=== PATIENT | male | born 1975 | race Caucasian/White ===

== ENCOUNTER 2016-08-20 05:20 | Emergency (ER) | payer OTHER ==
[~2016-08-20] VITALS: Ht 172.7 cm; Wt 97.5 kg
[~2016-08-20 05:20] MED LIST: BACTROBAN CREAM15 GM T; CLARITIN10 MG PO; CYCLOBENZAPRINE10 MG PO; EXFORGE HCT 5 M1 TAB PO; Fioricet 325 MG1 TAB PO; HYDROCODONE BIT1 T11 PO; KEFLEX500 MG PO; LEVOFLOXACIN500 MG PO; NOVOLIN R100 U/ML SC; PREDNISONE50 MG PO; SYNTHROID0.025 MG PO; VICODIN ES 7501 TAB PO
[2016-08-20] MEDS ORDERED: AMLODIPINE BESY PO (05:27)
[2016-08-20 06:17] LABS: BASO # 0.1 10*3/uL (0.0-0.1); BASO % 0.9 % (0.0-1.0); EOS # 0.3 10*3/uL (0.0-0.4); HEMATOCRIT 43.9 % (42.0-52.0); HEMOGLOBIN 15.4 g/dl (14.0-18.0); LYMPH # 1.4 10*3/uL (1.3-4.4); LYMPH % 14.2 % (27.0-41.0); MEAN CELL VOLUME 83.6 fl (80.0-94.0); MEAN CORPUSCULAR HGB 29.3 pg (27.0-31.0); MEAN CORPUSCULAR HGB CONC 35.1 g/dl (33.0-37.0); MEAN PLATELET VOLUME 9.7 fl (9.6-12.3); NEUT # 7.1 10*3/uL (2.3-7.9); NEUT % 71.5 % (47.0-73.0); PLATELET COUNT AUTOMATED 393 10*3/uL (130-400); RED BLOOD COUNT 5.25 10*6/uL (4.50-5.90); RED CELL DISTRI WIDTH 13.2 % (0-14.5); WHITE BLOOD COUNT 9.9 10*3/uL (4.8-10.8)
[2016-08-20 06:31] LABS: ALBUMIN 3.5 gm/dl (3.1-4.5); ALKALINE PHOSPHATASE 114 U/L (45-117); BILIRUBIN, TOTAL 0.3 mg/dl (0.2-1.0); BUN 8 mg/dl (7-24); CARBON DIOXIDE 32 mmol/L (21-32); CHLORIDE 101 mmol/L (98-107); EST GLOM FILT AFRICAN AMERICAN > 60 ml/min; GLUCOSE 262 mg/dL (65-99); POTASSIUM 4.5 mmol/L (3.5-5.1); SGOT/AST 18 IU/L (3-35); SGPT/ALT 26 U/L (12-78); SODIUM 139 mmol/L (136-145); TOTAL PROTEIN 7.4 gm/dL (6.4-8.2)
[2016-08-20 06:33] LABS: TROPONIN I < 0.015 ng/ml (<0.045)
[2016-08-20] MEDS ORDERED: ROBITUSSIN AC 110 ML PO (06:38)
[2016-08-20] MEDS ORDERED: ZOFRAN ODT4 MG SL (06:38)
[2016-08-20] MEDS ORDERED: TAMIFLU 75MG CA75 MG PO (06:38)
[2016-08-20] MEDS ORDERED: ZITHROMAX250 MG PO (06:39)
[2016-08-20 06:51] LABS: BILIRUBIN NEGATIVE (NEGATIVE); BLOOD NEGATIVE (NEGATIVE); CLARITY CLEAR (CLEAR); COLOR YELLOW (YELLOW); GLUCOSE 3+ (NEGATIVE); KETONE NEGATIVE (NEGATIVE); NITRITE NEGATIVE (NEGATIVE); PH 7.5 (5.0-9.0); PROTEIN NEGATIVE (NEGATIVE); UROBILINOGEN 0.2 E.U./dl (0.2-1.0)
[2016-08-20 06:53] LABS: LEUKO ESTERASE NEGATIVE (NEGATIVE)
[2016-08-20 07:03] LABS: BACTERIA TRACE; RBC 0-2 rbc/hpf (0-2); URINE REFLEX COMMENT NO (NO); WBC 0-2 wbc/hpf (0-5)
== END 2016-08-20 07:34 | disposition home or self-care (01) ==
LOC: ED 05:20
PROVIDERS: Emergency Medicine Emergency Medical Services
DX: J40 Bronchitis, not specified as acute or chronic (principal); J11.1 Influenza due to unidentified influenza virus with other respiratory manifestations; E11.8 Type 2 diabetes mellitus with unspecified complications; Z90.89 Acquired absence of other organs; Z79.899 Other long term (current) drug therapy

== ENCOUNTER → 2020-04-06 | Outpatient (CLI) | payer OTHER ==
[~2020-04-06] MED LIST changes: +AMLODIPINE BESY PO; +ROBITUSSIN AC 110 ML PO; +TAMIFLU 75MG CA75 MG PO; +ZITHROMAX250 MG PO; +ZOFRAN ODT4 MG SL
== END | disposition home or self-care (01) ==
LOC: COVID19 08:20
PROVIDERS: ATTEND Internal Medicine
DX: Z20.828 Contact with and (suspected) exposure to other viral communicable diseases (principal)

== ENCOUNTER → 2020-04-10 | Outpatient (CLI) | payer OTHER | END | disposition home or self-care (01) | LOC: COVID19 09:41 | PROVIDERS: ATTEND Family Medicine | DX: Z20.828 Contact with and (suspected) exposure to other viral communicable diseases (principal) ==

== ENCOUNTER 2020-11-15 05:07 | Emergency (ER) | payer OTHER ==
[~2020-11-15] VITALS: Ht 172.7 cm; Wt 95.3 kg
[2020-11-15 05:50] LABS: ALBUMIN 3.6 gm/dl (3.1-4.5); ALKALINE PHOSPHATASE 101 U/L (45-117); BUN 5 mg/dl (7-24); CHLORIDE 104 mmol/L (98-107); CREATININE 0.67 mg/dL (0.70-1.30); ETHYL ALCOHOL < 3.0 mg/dl (<3); POTASSIUM 3.8 mmol/L (3.5-5.1); SGOT/AST 16 IU/L (3-35); SGPT/ALT 28 U/L (12-78); SODIUM 138 mmol/L (136-145); TOTAL PROTEIN 7.2 gm/dL (6.4-8.2); TROPONIN I < 0.015 ng/ml (<0.045)
[2020-11-15 05:53] LABS: BASO # 0.1 10*3/uL (0.0-0.1); BASO % 1.6 % (0.0-1.0); EOS # 0.5 10*3/uL (0.0-0.4); EOS % 7.8 % (1.0-4.0); HEMATOCRIT 43.9 % (42.0-52.0); LYMPH # 2.3 10*3/uL (1.3-4.4); LYMPH % 35.6 % (27.0-41.0); MEAN CELL VOLUME 83.3 fl (80.0-94.0); MEAN CORPUSCULAR HGB 28.7 pg (27.0-31.0); MEAN CORPUSCULAR HGB CONC 34.4 g/dl (33.0-37.0); MEAN PLATELET VOLUME 9.3 fl (9.6-12.3); MONO # 0.8 10*3/uL (0.1-1.0); MONO % 11.7 % (3.0-9.0); NEUT # 2.8 10*3/uL (2.3-7.9); NEUT % 42.8 % (47.0-73.0); PLATELET COUNT AUTOMATED 385 10*3/uL (130-400); RED BLOOD COUNT 5.27 10*6/uL (4.50-5.90); RED CELL DISTRI WIDTH 12.9 % (0-14.5); WHITE BLOOD COUNT 6.4 10*3/uL (4.8-10.8)
[2020-11-15] MEDS ORDERED: PREDNISONE20 M1 PO (06:01)
== END 2020-11-15 06:15 | disposition home or self-care (01) ==
LOC: ED 05:07
PROVIDERS: Internal Medicine
DX: R07.89 Other chest pain (principal); Z90.89 Acquired absence of other organs; Z79.899 Other long term (current) drug therapy

== ENCOUNTER → 2021-05-06 | Outpatient (CLI) | payer OTHER ==
[~2021-05-06] MED LIST changes: +PREDNISONE20 M1 PO
== END | disposition home or self-care (01) ==
LOC: COVID19 15:10
PROVIDERS: ATTEND Student in an Organized Health Care Education/Training Program
DX: Z20.822 Contact with and (suspected) exposure to COVID-19 (principal)

== ENCOUNTER → 2021-05-13 | Outpatient (CLI) | payer OTHER | END | disposition home or self-care (01) | LOC: MRI 09:58 | PROVIDERS: ATTEND Podiatrist | DX: M86.8X7 Other osteomyelitis, ankle and foot (principal) ==

== ENCOUNTER 2021-08-05 06:01 | Emergency (ER) | payer OTHER ==
[~2021-08-05] VITALS: Ht 175.2 cm; Wt 73.5 kg
[2021-08-05] MEDS ORDERED: LEVOFLOXACIN500 MG PO ×2 (06:27)
== END 2021-08-05 06:56 | disposition home or self-care (01) ==
LOC: ED 06:01
DX: J40 Bronchitis, not specified as acute or chronic (principal); Z79.899 Other long term (current) drug therapy

== ENCOUNTER 2021-08-08 20:49 | Emergency (ER) | payer OTHER ==
[~2021-08-08] VITALS: Ht 172.7 cm; Wt 95.3 kg
[2021-08-08] MEDS ORDERED: SYNTHROID137 MCG PO (20:57)
[2021-08-08] MEDS ORDERED: LIPITOR40 MG PO (20:57)
[2021-08-08] MEDS ORDERED: CYMBALTA60 MG PO (20:58)
[2021-08-08] MEDS ORDERED: VALSARTAN-HCTZ1 EAC3 PO (20:58)
[2021-08-08] MEDS ORDERED: GABAPENTIN400 MG PO (20:59)
[2021-08-08] MEDS ORDERED: ZANAFLEX4 MG PO (20:59)
[2021-08-08] MEDS ORDERED: TRAZODONE50 MG PO (20:59)
[2021-08-08 21:33] LABS: BASO # 0.1 10*3/uL (0.0-0.1); BASO % 0.6 % (0.0-1.0); EOS # 0.3 10*3/uL (0.0-0.4); EOS % 2.8 % (1.0-4.0); HEMATOCRIT 41.1 % (42.0-52.0); LYMPH # 2.4 10*3/uL (1.3-4.4); LYMPH % 22.9 % (27.0-41.0); MEAN CELL VOLUME 80.4 fl (80.0-94.0); MEAN CORPUSCULAR HGB CONC 34.8 g/dl (33.0-37.0); MEAN PLATELET VOLUME 8.7 fl (9.6-12.3); MONO % 9.8 % (3.0-9.0); NEUT # 6.5 10*3/uL (2.3-7.9); NEUT % 63.6 % (47.0-73.0); PLATELET COUNT AUTOMATED 438 10*3/uL (130-400); RED BLOOD COUNT 5.11 10*6/uL (4.50-5.90); RED CELL DISTRI WIDTH 11.9 % (0-14.5); WHITE BLOOD COUNT 10.3 10*3/uL (4.8-10.8)
[2021-08-08 21:45] LABS: ALKALINE PHOSPHATASE 115 U/L (45-117); BUN 9 mg/dl (7-24); CHLORIDE 94 mmol/L (98-107); CREATININE 0.87 mg/dL (0.70-1.30); POTASSIUM 3.5 mmol/L (3.5-5.1); SGOT/AST 27 IU/L (3-35); SGPT/ALT 28 U/L (12-78); SODIUM 128 mmol/L (136-145); TOTAL PROTEIN 7.4 gm/dL (6.4-8.2)
[2021-08-09] MEDS ORDERED: VIBRAMYCIN100 MG PO (00:25)
== END 2021-08-09 00:25 | disposition home or self-care (01) ==
LOC: ED 20:49
PROVIDERS: Physician Assistant
DX: L08.89 Other specified local infections of the skin and subcutaneous tissue (principal); Z79.899 Other long term (current) drug therapy; E11.9 Type 2 diabetes mellitus without complications

== ENCOUNTER 2023-03-04 04:01 | Emergency (ER) | payer BC ==
[~2023-03-04] VITALS: Ht 175.2 cm; Wt 93.4 kg
[~2023-03-04 04:01] MED LIST changes: +CYMBALTA60 MG PO; +GABAPENTIN400 MG PO; +LIPITOR40 MG PO; +SYNTHROID137 MCG PO; +TRAZODONE50 MG PO; +VALSARTAN-HCTZ1 EAC3 PO; +VIBRAMYCIN100 MG PO; +ZANAFLEX4 MG PO
[2023-03-04 04:39] LABS: BASO # 0.1 10*3/uL (0.0-0.1); BASO % 0.7 % (0.0-1.0); EOS # 0.5 10*3/uL (0.0-0.4); EOS % 4.3 % (1.0-4.0); HEMATOCRIT 41.3 % (42.0-52.0); LYMPH # 2.2 10*3/uL (1.3-4.4); LYMPH % 17.7 % (27.0-41.0); MEAN CELL VOLUME 82.8 fl (80.0-94.0); MEAN CORPUSCULAR HGB 29.7 pg (27.0-31.0); MEAN CORPUSCULAR HGB CONC 35.8 g/dl (33.0-37.0); MEAN PLATELET VOLUME 8.9 fl (9.6-12.3); MONO % 7.7 % (3.0-9.0); NEUT # 8.7 10*3/uL (2.3-7.9); NEUT % 69.3 % (47.0-73.0); PLATELET COUNT AUTOMATED 382 10*3/uL (130-400); RED BLOOD COUNT 4.99 10*6/uL (4.50-5.90); RED CELL DISTRI WIDTH 12.5 % (0-14.5); WHITE BLOOD COUNT 12.5 10*3/uL (4.8-10.8)
[2023-03-04 05:10] LABS: ALKALINE PHOSPHATASE 131 U/L (46-116); BUN 8 mg/dl (9-23); CHLORIDE 101 mmol/L (98-107); LIPASE 24 U/L (12-53); POTASSIUM 4.2 mmol/L (3.4-5.1); SGPT/ALT 29 U/L (5-49)
[2023-03-04] MEDS ORDERED: AMOX-CLAV 875-1 EACH PO (05:43)
== END 2023-03-04 05:50 | disposition home or self-care (01) ==
LOC: ED 04:01
PROVIDERS: Internal Medicine
DX: J32.9 Chronic sinusitis, unspecified (principal); Z20.822 Contact with and (suspected) exposure to COVID-19; R07.81 Pleurodynia; E11.9 Type 2 diabetes mellitus without complications; Z79.2 Long term (current) use of antibiotics; Z79.899 Other long term (current) drug therapy; Z79.4 Long term (current) use of insulin